=== PATIENT | male | born 1950 | race Caucasian/White ===

== ENCOUNTER 2017-11-25 08:17 | Observation (INO) ==
[2017-11-25] MEDS ORDERED: Aspirin 81 MG TAB.CHEW PO ONE (08:28)
--- NOTE | 2017-11-25 08:30 | Emergency Department Note ---
Disposition Clinical Impression: Chest pain Qualifiers: Chest pain type: unspecified Qualified Code(s): R07.9 - Chest pain, unspecified Disposition: Admitted As Inpatient Condition: Good Chest Pain HPI - General Chief Complaint: ED Chest Pain Stated Complaint: Chest pain Time Seen by Provider: 11/25/17 08:23 Source: EMS Mode of arrival: EMS Limitations: no limitations Vital Signs Reviewed: Yes Nursing Notes Reviewed: Yes - History of Present Illness HPI Narrative: 67-year-old male history of hypertension, hyperlipidemia, diabetes who presents to the ER via EMS from the [facility] due to chest pain. Patient reports he was undergoing an MRI this morning when he developed left-sided chest pain. Describes it as "electrical shocks" that lasted for roughly 15 minutes. States that whenever the MRI was stopped he started to feel better. He denies any shortness of breath, diaphoresis, nausea or vomiting during this period reports he was told he had a heart attack before but not has no stents. Upon time of arrival the patient is noted to be asymptomatic. No other complaints. Pt complaint: chest pain Onset (ago): Just INSTRUCTOR EXTENSION WORK Duration: now resolved Onset: during rest Pain Location: left chest Severity: none Severity scale (1-10): 0 Pain Radiation: none Improves with: nothing Worsens with: nothing Associated symptoms: Denies: nausea, vomiting, diaphoresis Treatments prior to arrival chest pain: none - Related Data On Oral Contraceptives: No Home Medications Medication Instructions Recorded Confirmed Acetaminophen [Non-Aspirin] 650 mg PO QID PRN 11/25/17 11/25/17 Calcium Carbonate/Vitamin D3 2 tab PO BID 11/25/17 11/25/17 [Calcium 250+D Tablet] Donepezil [Aricept] 10 mg PO HS 11/25/17 11/25/17 Doxazosin [Cardura] 4 mg PO HS 11/25/17 11/25/17 Escitalopram [Lexapro] 20 mg PO DAILY 11/25/17 11/25/17 Ferrous Sulfate [Iron] 325 mg PO DAILY 11/25/17 11/25/17 Lidocaine 4% CRM (LMX) [Lmx 4] 1 appl TP QID PRN 11/25/17 11/25/17 Lisinopril [Zestril] 10 mg PO DAILY 11/25/17 11/25/17 Memantine [Namenda] 5 mg PO DAILY 11/25/17 11/25/17 Methocarbamol [Robaxin-750] 750 mg PO TID 11/25/17 11/25/17 Naproxen [Naprosyn] 500 mg PO BID 11/25/17 11/25/17 Omeprazole [PriLOSEC] 20 mg PO DAILY 11/25/17 11/25/17 Pravastatin Sodium [Pravachol] 20 mg PO QPM 11/25/17 11/25/17 metFORMIN [Glucophage] 1,000 mg PO BIDWM 11/25/17 11/25/17 Allergies Allergy/AdvReac Type Severity Reaction Status Date / Time No Known Allergies Allergy Verified 11/25/17 08:17 All systems ED: reviewed and negative except as stated. Constitutional: Denies: fever Cardiovascular: Reports: chest pain Respiratory: Denies: cough, dyspnea Gastrointestinal: Denies: nausea, vomiting, diarrhea Musculoskeletal: Denies: back pain, neck pain Chest Pain PMH - Past Medical History Medical history: Reports: diabetes, hyperlipidemia, hypertension, myocardial infarction Psychiatric history: Reports: no psych history - Social History Smoking Status: Former smoker Alcohol use: Reports: none Drug use: Reports: none Physical Exam - General Limitations: no limitations General appearance: alert, in no apparent distress - Head Head exam: atraumatic, normocephalic - Eye Eye exam: Present: normal appearance - ENT ENT exam: normal exam - Neck Neck exam: Present: normal inspection, full ROM - Chest Chest inspection: Present: normal inspection, symmetric chest wall rise. Absent : tenderness - Respiratory Respiratory exam: Present: normal lung sounds bilaterally - Cardiovascular Cardiovascular exam: Present: regular rate, normal rhythm, normal heart sounds - Abdominal Exam Abdominal exam: Present: soft, Non-Tender. Absent: tenderness - Extremities Exam Extremities exam: Present: normal inspection, full ROM - Expanded Upper Extremity Exam Shoulder exam: Present: normal inspection, full ROM Arm exam: Present: normal inspection, full ROM Elbow exam: Present: normal inspection, full ROM Forearm/Wrist exam: Present: normal inspection, full ROM Hand exam: Present: normal inspection, full ROM - Expanded Lower Extremity Exam Hip/Pelvis exam: Present: normal inspection, full ROM Upper leg exam: Present: normal inspection, full ROM Knee exam: Present: normal inspection, full ROM Lower leg exam: Present: normal inspection, full ROM Ankle exam: Present: normal inspection, full ROM Foot/toe exam: Present: normal inspection, full ROM - Neurological Exam Neurological exam: Present: alert, other (GCS 15. Nonfocal) - Psychiatric Psychiatric exam: Present: normal affect, normal mood - Skin Skin exam: Present: warm, dry, intact Course Course Narrative: Patient seen and examined. Vital signs reviewed. He is currently asymptomatic. We will obtain an EKG, chest x-ray as well as labs including troponin. Aspirin ordered. - Reevaluation(s) Reevaluation #1: Patient was requesting to go home. I spoke with the patient as well as his family member after he handed the phone to me who agreed with admission to the hospital. The patient now agrees of being admitted and is accepted to the hospitalist service. Vital Signs Temperature 97.6 F 11/25/17 08:18 Pulse Rate 50 11/25/17 08:18 Respiratory Rate 18 11/25/17 08:18 Blood Pressure 152/87 11/25/17 08:18 O2 Sat by Pulse Oximetry 98 11/25/17 08:18 Temperature 97.6 F 11/25/17 08:18 Pulse Rate 64 11/25/17 10:06 Respiratory Rate 16 11/25/17 10:06 Blood Pressure 129/85 11/25/17 10:06 O2 Sat by Pulse Oximetry 96 11/25/17 10:06 Oxygen Delivery Oxygen Delivery Room Air Chest Pain - MDM Narrative Medical decision making narrative: 67-year-old male presents to the ER due to chest pain. Patient reports he is having an MRI earlier today and developed chest pain. Lasted for roughly 30 minutes and resolved prior to arrival. His EKG demonstrates no ischemic findings. Chest x-ray unremarkable. Initial troponin within normal limits. Patient given aspirin here. Admitted to the hospitalist service for chest pain rule out. - Lab Data Lab results reviewed: Yes I reviewed the patient's lab results. Result diagrams: 11/25/17 08:39 11/25/17 08:39 Lab Results 11/25/17 11/25/17 11/25/17 Range/Units 08:39 08:39 08:39 WBC 4.6 (4.3-11.1) K/mcL RBC 4.67 (4.19-5.50) M/mcL Hgb 12.9 (12.9-16.9) g/dL Hct 40.7 (37.5-50.1) % MCV 87.2 (83.0-100.0) fL MCH 27.6 L (28.0-33.3) pg MCHC 31.7 (31.6-35.5) g/dL RDW 13.7 (11.5-14.5) % Plt Count 190 (140-400) K/mcL MPV 9.3 L (9.4-12.4) fL Immature Gran % 0.0 (0-4) % Seg Neutrophils % 49.9 % Lymphocytes % 39.5 % Monocytes % 9.1 % Eosinophils % 1.1 % Basophils % 0.4 % Neutrophils # 2.3 (1.6-8.9) K/mcL Lymphocytes # 1.8 (0.6-4.6) K/mcL Monocytes # 0.4 (0.0-1.3) K/mcL Eosinophils # 0.1 (0.0-0.6) K/mcL Basophils # 0.0 (0.0-0.2) K/mcL Sodium 138 (136-145) mEq/L Potassium 3.9 (3.5-5.1) mEq/L Chloride 105 (98-107) mEq/L Carbon Dioxide 27 (23-29) mEq/L BUN 12 (8-23) mg/dL Creatinine 1.00 (0.70-1.30) mg/dL Est GFR ( Amer) > 60 (> 60) Est GFR (Non-Af Amer) > 60 (> 60) BUN/Creatinine Ratio 12 (6-26) Glucose 114 H (70-105) mg/dL Calculated Osmolality 287 (280-300) Calcium 9.3 (8.6-10.3) mg/dL Troponin I (< 0.04) ng/mL B-Natriuretic Peptide 11 (Less than 100) pg/mL 11/25/17 Range/Units 08:39 WBC (4.3-11.1) K/mcL RBC (4.19-5.50) M/mcL Hgb (12.9-16.9) g/dL Hct (37.5-50.1) % MCV (83.0-100.0) fL MCH (28.0-33.3) pg MCHC (31.6-35.5) g/dL RDW (11.5-14.5) % Plt Count (140-400) K/mcL MPV (9.4-12.4) fL Immature Gran % (0-4) % Seg Neutrophils % % Lymphocytes % % Monocytes % % Eosinophils % % Basophils % % Neutrophils # (1.6-8.9) K/mcL Lymphocytes # (0.6-4.6) K/mcL Monocytes # (0.0-1.3) K/mcL Eosinophils # (0.0-0.6) K/mcL Basophils # (0.0-0.2) K/mcL Sodium (136-145) mEq/L Potassium (3.5-5.1) mEq/L Chloride (98-107) mEq/L Carbon Dioxide (23-29) mEq/L BUN (8-23) mg/dL Creatinine (0.70-1.30) mg/dL Est GFR ( Amer) (> 60) Est GFR (Non-Af Amer) (> 60) BUN/Creatinine Ratio (6-26) Glucose (70-105) mg/dL Calculated Osmolality (280-300) Calcium (8.6-10.3) mg/dL Troponin I < 0.03 (< 0.04) ng/mL B-Natriuretic Peptide (Less than 100) pg/mL - Radiology Data Radiology results reviewed: Yes I reviewed the patient's radiology results. Chest X-Ray 11/25/17 08:28 IMPRESSION: No acute process. D/ / Jos Whitmore MD / Jos Whitmore MD Interpreting Provider: Jos Whitmore MD - EKG Data EKG attestation: Yes I reviewed and interpreted this EKG. EKG results narrative: EKG demonstrates sinus bradycardia with a rate of 50 bpm. Normal axis. Normal intervals. Normal R-wave progression. T-wave inversions in lead [address] elevations or depressions. No acute ischemic findings. No previous EKG for comparison. Heart Score - Score History: Slightly Suspicious EKG: Normal Age: Greater than 65 Risk Factors: Equal/Greater than 3 risk factor or history of atherosclerotic disease Troponin: Less than normal limit HEART Score Total: 4 S.B.A.R. - S.Minda Situation: Demographics, MOA Background: Presenting Complaint, Relevant PMH, Meds, & Allergies Assessment: Course and respsone to treatment, Exam Concerns, Patient/Family Expectation, Pertinant Lab Results Recommendation: Barrier(s) to disposition, Recommendation based on pending studies, treatments, or consults S.B.A.eZnobia. Report Given to: Dr. Diaz Attestation Statement - Attestation Attestation: I examined this patient and my medical decision-making was reviewed with the Resident Physician, Dr. Matthews. I agree with the documented findings, disposition and treatment plan as described except to the extent set forth below. Patient is a 67-year-old black male who was sent to us from the [facility] for an episode of chest pain that he had while undergoing MRI this morning at the [facility]. Patient arrives asymptomatic, no complaints on arrival and in no acute distress. Vital signs are stable. Patient has a history of hyperlipidemia, hypertension, diabetes, prior DE. Patient states he was undergoing an MRI and shortly after the test began he started to experience left-sided nonradiating chest discomfort and denies any other symptoms, no diaphoresis, no shortness of breath, no nausea vomiting, no back or flank pain no abdominal pain. Patient states this lasted anywhere from 15-30 minutes and then resolved spontaneously after his testing had stopped. I agree with patient's physical exam findings as documented. Was administered on arrival, patient has been pain free throughout his ED course. EKG shows no acute ischemia. Patient's laboratory evaluation including troponin was within normal limits. Chest x-ray was unremarkable. Considering patient's significant history and risk factors we feel he would benefit from admission with serial enzymes and possible stress testing. Patient agreed to admission and case was discussed with the hospitalist.
[2017-11-25 08:45] LABS: Basophils % 0.4 %; Eosinophils # 0.1 K/mcL (0.0-0.6); Eosinophils % 1.1 %; Hematocrit 40.7 % (37.5-50.1); Hemoglobin 12.9 g/dL (12.9-16.9); Lymphocytes # 1.8 K/mcL (0.6-4.6); Lymphocytes % 39.5 %; Mean Corpuscular HGB Conc 31.7 g/dL (31.6-35.5); Mean Corpuscular Hemoglobin 27.6 pg (28.0-33.3); Mean Corpuscular Volume 87.2 fL (83.0-100.0); Mean Platelet Volume 9.3 fL (9.4-12.4); Monocytes # 0.4 K/mcL (0.0-1.3); Monocytes % 9.1 %; Neutrophils # 2.3 K/mcL (1.6-8.9); Platelet Count 190 K/mcL (140-400); Red Blood Count 4.67 M/mcL (4.19-5.50); Red Cell Distribution Width 13.7 % (11.5-14.5); Segmented Neutrophils % 49.9 %
[2017-11-25 09:00] LABS: BUN/Creatinine Ratio 12 (6-26); Blood Urea Nitrogen 12 mg/dL (8-23); Calcium 9.3 mg/dL (8.6-10.3); Carbon Dioxide 27 mEq/L (23-29); Chloride 105 mEq/L (98-107); Glucose 114 mg/dL (70-105); Osmolality,Calculated 287 (280-300); Potassium 3.9 mEq/L (3.5-5.1); Sodium 138 mEq/L (136-145); eGFR For African Americans > 60 (> 60); eGFR For Non-African Americans > 60 (> 60)
[2017-11-25] MEDS ORDERED: Acetaminophen 325 MG TABLET PO PRN ×2 (12:49→12:54)
[2017-11-25] MEDS ORDERED: Lidocaine 4% CREAM (LMX) 5 GM TP PRN (12:49)
[2017-11-25] MEDS ORDERED: *HR* Morphine 2 MG/ML SYRINGE IVP PRN (12:54)
[2017-11-25] MEDS ORDERED: Dextrose Gel 15 GM/37.5 ML TUBE PO PRN ×2 (12:54)
[2017-11-25] MEDS ORDERED: D5% in Water 1,000 ML IVC PRN (12:54)
[2017-11-25] MEDS ORDERED: Naloxone 0.4 MG/ML INJ IVP PRN (12:54)
[2017-11-25] MEDS ORDERED: *HR* Dextrose 50 % in Water (Syg) 50 ML SYRINGE IVP PRN (12:54)
--- NOTE | 2017-11-25 12:59 | Internal Med History&Physical ---
<Ryan Gao - Last Filed: 11/25/17 12:57> Date of Encounter: 11/25/17 Time of Encounter: 12:57 Assessment and Plan (1) Chest pain Status: Acute Presented today with left-sided chest pain lasting approximately 15 minutes. 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 Multiple risk factors including HTN, HLD and DM. Heart score of 4. Denies any current chest pain at this time, assessment reveals RRR with bradycardia S1 and S2, lungs CTA A&P, he remains hemodynamically stable. Initial troponin negative at 0.03 - cardiac enzymes x 2 q 6 hr - EKG SB without morphologic changes - Start ASA 81 mg QD - Resume Metoprolol hold for HR < 60 bpm - O2 by NC to keep SpO2 greater than 92% - CBCD, BMP in AM - Fasting lipids - Morphine 2 mg IV q 2-4 hr PRN chest pain - Tylenol 650 mg PO q 4-6 hr PRN headache - Resume Home meds - Heparin 5000 U SQ BID - 2D Echo -Nuclear stress in the morning -Diabetic/cardiac diet; nothing by mouth after midnight, no caffeine, nicotine or beta tita 8 hours prior to stress - Cardiology consult if subsequent troponins positive or stress test positive Qualifiers: Chest pain type: unspecified Qualified Code(s): R07.9 - Chest pain, unspecified (2) HLD (hyperlipidemia) Status: Acute History of hyperlipidemia. Check lipid panel in the morning Resume statin Qualifiers: Hyperlipidemia type: unspecified Qualified Code(s): E78.5 - Hyperlipidemia , unspecified; E78.0 - Pure hypercholesterolemia (3) HTN (hypertension) Status: Acute History of hypertension, blood pressure currently stable Resume beta tita and CHINTAN inhibitor Qualifiers: Hypertension type: essential hypertension Qualified Code(s): I10 - Essential (primary) hypertension (4) DM (diabetes mellitus) Status: Acute Start LSSIC with AC/HS accucheck and diabetic/cardiac diet Qualifiers: Diabetes mellitus type: type 2 Diabetes mellitus complication status: without complication Diabetes mellitus web site designer insulin use: without web site designer use Qualified Code(s): E11.9 - Type 2 diabetes mellitus without complications (5) DVT prophylaxis Status: Acute Heparin 5000 units SC BID Internal Medicine - H&P: HPI Chief complaint: Chest pain Admitted From: Home Plans for Post Hospital Care: Home History of present illness: Mr. Edwards is a 67 year old male with a PMH of HTN, HLD, type 2 diabetes and AK 2 without stents approximately 8 years ago. Patient presents from [facility] to [facility] [place]. He reports he was this morning to get an MRI of his left shoulder due to chronic left shoulder pain. During the MRI he reports he began to experience "electrical-like shocks" in his left chest. He denies any diaphoresis, nausea, radiation, shortness of breath. Initial workup included chest x-ray which is negative and troponin which was also found to be negative. However, due to prior history of MIs and heart score 4 and clinical presentation patient is being admitted for further workup and monitoring. Past Med Surg Social Fam HX - Past Medical History Medical history: diabetes, hyperlipidemia, hypertension, myocardial infarction Psychiatric history: no psych history - Past Surgical History Surgical History: orthopedic, other - Social History Smoking Status: Former smoker Smokeless Tobacco Status: No (PAST) Alcohol use: none Drug use: none - Additional Family History Additional family history: Noncontributory Internal Medicine - H&P: Meds Acetaminophen [Non-Aspirin] 650 mg PO QID PRN 11/25/17 [History] Atenolol [Tenormin] 50 mg PO DAILY 11/25/17 [History] Calcium Carbonate/Vitamin D3 [Calcium 250+D Tablet] 2 tab PO BID 11/25/17 [ History] Donepezil [Aricept] 10 mg PO HS 11/25/17 [History] Doxazosin [Cardura] 4 mg PO HS 11/25/17 [History] Escitalopram [Lexapro] 20 mg PO DAILY 11/25/17 [History] Ferrous Sulfate [Iron] 325 mg PO DAILY 11/25/17 [History] Lidocaine 4% CRM (LMX) [Lmx 4] 1 appl TP QID PRN 11/25/17 [History] Lisinopril [Zestril] 10 mg PO DAILY 11/25/17 [History] Memantine [Namenda] 5 mg PO DAILY 11/25/17 [History] Methocarbamol [Robaxin-750] 750 mg PO TID 11/25/17 [History] Mirabegron [Myrbetriq] 50 mg PO DAILY 11/25/17 [History] Naproxen [Naprosyn] 500 mg PO BID 11/25/17 [History] Omeprazole [PriLOSEC] 20 mg PO DAILY 11/25/17 [History] Pravastatin Sodium [Pravachol] 20 mg PO QPM 11/25/17 [History] metFORMIN [Glucophage] 1,000 mg PO BIDWM 11/25/17 [History] Aspirin 81 mg PO DAILY #90 tab.chew 11/26/17 [Rx] 3 Allergy/AdvReac Type Severity Reaction Status Date / Time No Known Allergies Allergy Verified 11/25/17 08:17 All Systems PM: A 10-system review of systems was performed and is negative for pertinent findings except as documented above in the HPI. - Constitutional Constitutional: no chills, no fever(s), no night sweats - EENT Eyes: no change in vision, no discharge, no pain, no photophobia Ears: no ear discharge, no ear pain, no tinnitus Nose, mouth and throat: no dysphagia, no nasal discharge, no neck pain, no sore throat - Cardiovascular Cardiovascular ROS IM: chest pain (HAS SUBSIDED ), no diaphoresis, no dyspnea, no dyspnea on exertion, no edema, no irregular heart rhythm, no lightheadedness , no orthopnea, no palpitations, no paroxysmal nocturnal dyspnea, no syncope - Respiratory Respiratory: no cough, no dyspnea, no wheezing, no excessive phlegm production - Gastrointestinal Gastrointestinal: no abdominal pain, no diarrhea, no hematemesis, no hematochezia, no melena, no nausea, no vomiting - Musculoskeletal Musculoskeletal ROS IM: no numbness, no tingling - Integumentary Integumentary IM: no rash, no unusual bruising - Neurological Neurological ROS: no confusion, no convulsions, no focal weakness, no numbness, no tingling, no tremor(s) - Hematologic/Lymphatic Hematologic/Lymphatic: no easy bruising - Constitutional Vitals: Temp Pulse Resp BP Pulse Ox 97.8 F 54 16 120/70 94 11/25/17 10:52 11/25/17 10:52 11/25/17 10:52 11/25/17 10:52 11/25/17 10:52 General appearance: Present: cooperative, A&O X 3, no acute distress, answers questions appropriately - Head Head exam: Present: atraumatic, normocephalic - Eye Eye exam: Present: PERRL, conjuntiva pink, sclera anicteric Pupils: Present: PERRL - Neck Neck exam general surgery: Present: supple, trachea midline. Absent: lymphadenopathy - Respiratory Respiratory exam: Present: CTAB. Absent: accessory muscle use, rales, rhonchi, wheezes - Cardiovascular Cardiovascular exam: Present: bradycardia, RRR, +S1, +S2. Absent: diastolic murmur, gallop, rubs, systolic murmur - GI/Abdominal GI/Abdominal exam: Present: normal bowel sounds, soft, no peritoneal signs. Absent: distended, tenderness - Extremities Exam Extremities exam: Present: warm, radial pulses palpable and symmetrical. Absent : calf tenderness, cyanotic, pedal edema, tenderness - Neurological Exam Neurological exam: Present: CN II-XII intact, oriented X3, no focal deficits. Absent: pronater drift, facial droop, speech deficit - Skin Skin exam: Present: dry, intact Internal Med - H&P Results - Labs CBC & Chem 7: 11/25/17 08:39 11/25/17 08:39 - EKG Data -: EKG Interpreted by Myself EKG shows normal: sinus rhythm Rate: bradycardia - Diagnostic Studies Chest x-ray Status: image reviewed by me Additional comments: No acute pulmonary process <Margarita Diaz - Last Filed: 12/25/17 08:57> Date of Encounter: 12/25/17 Internal Medicine - H&P: HPI History of present illness: Mr. Edwards is a 67 year old male All Systems PM: A 10-system review of systems was performed and is negative for pertinent findings except as documented above in the HPI. - Constitutional Vitals: Temp Pulse Resp BP Pulse Ox 97.9 F 50 20 144/78 95 11/26/17 11:26 11/26/17 11:26 11/26/17 11:26 11/26/17 11:26 11/26/17 11:26 Internal Med - H&P Results - Labs CBC & Chem 7: 11/26/17 05:40 11/26/17 05:40 - Impressions ITS Impressions Echocardiogram 11/25/17 12:52 Impressions: LVEF 60%. Mild left ventricular diastolic dysfunction. Normal right ventricular structure and function. No significant valvular dysfunction. No pulmonary hypertension. Left Ventricular Wall Motion: Rest Echo Findings All wall segments showed normal motion. Findings: Study Quality * Technically adequate exam. ECG Findings * Normal sinus rhythm. Left Ventricle * LVEF 60%. * Normal LV chamber size and function. * Borderline increase in LV wall thickness. * Mild left ventricular diastolic dysfunction. Right Ventricle * Normal right ventricular structure and function. Left Atrium * Mildly dilated left atrium. Right Atrium * Normal right atrial size. Aortic Valve * No aortic regurgitation. * Trileaflet aortic valve. * No aortic stenosis. Mitral Valve * No mitral regurgitation. * Normal mitral valve structure. * No mitral stenosis. Tricuspid Valve * Tricuspid valve not well visualized. * No tricuspid regurgitation. Pulmonic Valve * Pulmonic valve is not well visualized. * No pulmonic stenosis. * No pulmonic regurgitation. Pulmonary Artery * Pulmonary artery not well visualized. Aorta * Normally sized aortic root. Pericardium * There is no pericardial effusion present. Interatrial Septum * No evidence of PFO by color Doppler. IVC * The IVC is not well evaluated. - Attending Attestation I personally and independently interviewed and examined the patient with LINING MACHINE TENDER, and I reviewed the patient's medical record with her. I am in agreement with the assessment and proposed treatment plan. I discussed my findings and recommendation with the patient and answer all questions. The patient's medical records were edited to accurately reflect this encounter.
[2017-11-25] MEDS: Methocarbamol 750 MG TABLET PO SCH (16:29)
[2017-11-25] MEDS: Insulin LISPRO 300 UNITS/3 ML VIAL SQ SCH (17:17)
[2017-11-25] MEDS: *HR* Heparin 5,000 UNIT/ML VIAL SQ SCH (17:46)
[2017-11-25] MEDS ORDERED: Insulin LISPRO 300 UNITS/3 ML VIAL SQ SCH (21:00)
[2017-11-26] MEDS: Methocarbamol 750 MG TABLET PO SCH ×3 (01:20→10:07)
[2017-11-26] MEDS: (Calcium Carbonate/Vitamin D3 [Calcium 250+D Tablet] ) PO SCH ×2 (01:20→09:26)
[2017-11-26] MEDS: *HR* Heparin 5,000 UNIT/ML VIAL SQ SCH (05:56)
[2017-11-26] MEDS ORDERED: Regadenoson 0.4 MG/5 ML SYRINGE IVP ONE (06:15)
[2017-11-26 06:16] LABS: Basophils % 0.5 %; Eosinophils # 0.1 K/mcL (0.0-0.6); Eosinophils % 2.8 %; Hematocrit 37.7 % (37.5-50.1); Lymphocytes # 1.5 K/mcL (0.6-4.6); Mean Corpuscular HGB Conc 31.8 g/dL (31.6-35.5); Mean Corpuscular Hemoglobin 27.6 pg (28.0-33.3); Mean Corpuscular Volume 86.7 fL (83.0-100.0); Monocytes # 0.4 K/mcL (0.0-1.3); Monocytes % 9.4 %; Neutrophils # 1.9 K/mcL (1.6-8.9); Platelet Count 185 K/mcL (140-400); Red Blood Count 4.35 M/mcL (4.19-5.50); Red Cell Distribution Width 13.6 % (11.5-14.5); Segmented Neutrophils % 48.3 %
[2017-11-26 06:29] LABS: Chol/HDL Ratio 3.1 (0-4.9)
[2017-11-26 06:33] LABS: BUN/Creatinine Ratio 13 (6-26); Blood Urea Nitrogen 11 mg/dL (8-23); Calcium 8.8 mg/dL (8.6-10.3); Carbon Dioxide 27 mEq/L (23-29); Chloride 106 mEq/L (98-107); Glucose 131 mg/dL (70-105); Osmolality,Calculated 285 (280-300); Potassium 4.1 mEq/L (3.5-5.1); Sodium 137 mEq/L (136-145); eGFR For African Americans > 60 (> 60); eGFR For Non-African Americans > 60 (> 60)
[2017-11-26] MEDS ORDERED: (Mirabegron [Myrbetriq] 50 MG) PO SCH (09:00)
[2017-11-26] MEDS ORDERED: Aspirin 81 MG TAB.CHEW PO SCH (09:00)
[2017-11-26] MEDS: Insulin LISPRO 300 UNITS/3 ML VIAL SQ SCH ×2 (09:26→12:02)
[2017-11-26 11:31] VITALS: BP 144/78
--- NOTE | 2017-11-26 12:01 | Discharge Summary ---
Date of Encounter: 11/26/17 Time of Encounter: 12:02 - Discharge Diagnosis (1) Chest pain Priority: Primary Status: Resolved Qualifiers: Chest pain type: unspecified Qualified Code(s): R07.9 - Chest pain, unspecified (2) HLD (hyperlipidemia) Priority: Secondary Status: Chronic Qualifiers: Hyperlipidemia type: pure hypercholesterolemia Qualified Code(s): E78.00 - Pure hypercholesterolemia, unspecified; E78.0 - Pure hypercholesterolemia (3) HTN (hypertension) Priority: Secondary Status: Chronic Qualifiers: Hypertension type: essential hypertension Qualified Code(s): I10 - Essential (primary) hypertension (4) DM (diabetes mellitus) Priority: Secondary Status: Acute Qualifiers: Diabetes mellitus type: type 2 Diabetes mellitus complication status: without complication Diabetes mellitus fci insulin use: without rat exterminator use Qualified Code(s): E11.9 - Type 2 diabetes mellitus without complications - Discharge Medications Prescriptions: Aspirin 81 mg PO DAILY #90 tab.chew Home Medications: Acetaminophen [Non-Aspirin] 650 mg PO QID PRN 11/25/17 [History] Atenolol [Tenormin] 50 mg PO DAILY 11/25/17 [History] Calcium Carbonate/Vitamin D3 [Calcium 250+D Tablet] 2 tab PO BID 11/25/17 [ History] Donepezil [Aricept] 10 mg PO HS 11/25/17 [History] Doxazosin [Cardura] 4 mg PO HS 11/25/17 [History] Escitalopram [Lexapro] 20 mg PO DAILY 11/25/17 [History] Ferrous Sulfate [Iron] 325 mg PO DAILY 11/25/17 [History] Lidocaine 4% CRM (LMX) [Lmx 4] 1 appl TP QID PRN 11/25/17 [History] Lisinopril [Zestril] 10 mg PO DAILY 11/25/17 [History] Memantine [Namenda] 5 mg PO DAILY 11/25/17 [History] Methocarbamol [Robaxin-750] 750 mg PO TID 11/25/17 [History] Mirabegron [Myrbetriq] 50 mg PO DAILY 11/25/17 [History] Naproxen [Naprosyn] 500 mg PO BID 11/25/17 [History] Omeprazole [PriLOSEC] 20 mg PO DAILY 11/25/17 [History] Pravastatin Sodium [Pravachol] 20 mg PO QPM 11/25/17 [History] metFORMIN [Glucophage] 1,000 mg PO BIDWM 11/25/17 [History] Aspirin 81 mg PO DAILY #90 tab.chew 11/26/17 [Rx] Allergies/Adverse Reactions: 3 Allergy/AdvReac Type Severity Reaction Status Date / Time No Known Allergies Allergy Verified 11/25/17 08:17 Procedures/tests Complete & Pending: Procedures Performed prior 72 hours Category Date Time Status NM sonya perf SPECT multi [NM] Routine Exams 11/26/17 05:50 Taken EV echocardiogram Routine Y 11/25/17 12:52 Completed SP pharm nuclear stress Routine Y 11/26/17 08:00 Completed Date of admission: 11/25/17 10:04 Primary care physician: Valentin Mullins - Patient Status Disposition: Home, Self-Care Condition: Good - Discharge Instructions Follow Up With: Valentin Mullins [Primary Care Provider] - 12/08/17 10:00 am - Diet and Activity Activity: increase activity as tolerated Diet: advance to your usual diet Hospital course: Mr. Edwards is a 67 year old male with a PMH of HTN, HLD, type 2 diabetes and PR 2 without stents approximately 8 years ago. Patient presents from [facility] to [facility] with left side chest pain. Pt underwent cardiac stress testing which was negative for ischemia. Pt is started on ASA, continued on Atenolol and Statin Pt is seen sitting at the bedside, he reports no shest pain, says he is feeling better and can't wait to go home. He is stable for Discharge. - Time Spent with Patient Total time spent providing and/or coordinating discharge services: - Constitutional Vitals: Temp Pulse Resp BP Pulse Ox 97.9 F 50 20 144/78 95 11/26/17 11:26 11/26/17 11:26 11/26/17 11:26 11/26/17 11:26 11/26/17 11:26 General appearance: Present: cooperative, A&O X 3, no acute distress, answers questions appropriately - Head Head exam: Present: atraumatic, normocephalic - Eye Eye exam: Present: PERRL, conjuntiva pink, sclera anicteric Pupils: Present: PERRL - Neck Neck exam general surgery: Present: supple, trachea midline. Absent: lymphadenopathy - Respiratory Respiratory exam: Present: CTAB. Absent: accessory muscle use, rales, rhonchi, wheezes - Cardiovascular Cardiovascular exam: Present: RRR, +S1, +S2. Absent: diastolic murmur, gallop, rubs, systolic murmur - GI/Abdominal GI/Abdominal exam: Present: normal bowel sounds, soft, no peritoneal signs. Absent: distended, tenderness - Extremities Exam Extremities exam: Present: warm, radial pulses palpable and symmetrical. Absent : calf tenderness, cyanotic, pedal edema - Neurological Exam Neurological exam: Present: CN II-XII intact, oriented X3, no focal deficits. Absent: pronater drift, facial droop, speech deficit - Skin Skin exam: Present: dry, intact
--- NOTE | 2017-11-26 19:41 | Electrocardiograph Report ---
[address] [id number] Test Date: 2017-11-25 Pat Name: Roque Edwards Department: 104 Room: 3B Gender: M Help Desk Technician: JEFFRY : 1950 Requested By: Antwon Matthews Order Number: [id number] Reading MD: Juan A Liang MD Measurements Intervals [place] Rate: 50 P: 46 FL: 191 QRS: 32 QRSD: 87 T: 12 QT: 429 QTc: 403 Interpretive Statements SINUS BRADYCARDIA BASELINE ARTIFACT Electronically Signed On 11-26-2017 19:40:03 EST by Juan A Liang MD
== END 2017-11-26 13:43 | disposition home or self-care (01) ==
LOC: 3BNU 08:17 → EMEROO 08:17 → 3BNU 10:16
PROVIDERS: ADMIT Nurse Practitioner; ATTEND Registered Nurse